=== PATIENT | male | born 1940 | race Caucasian/White ===

== ENCOUNTER 2017-10-14 08:55 | Emergency (ER) | payer MEDICARE, OTHER ==
[2012-07-01 09:42] VITALS: BMI 23.1
--- NOTE | ~2017-10-14 | CN ---
PATIENT NAME:FRANKLIN WHITNEY MEDICAL RECORD: [id number] : 44 LOCATION:.ER ADMIT DATE: ACCOUNT: [id number] CONSULTING PHYSICIAN: ANNA CARPENTER MD REFERRING PHYSICIAN: HIREN COLE MD DATE OF CONSULTATION: 10/14/2017 CARDIOLOGY CONSULT PROBLEM LIST: 1. Shortness of breath - dyspnea on exertion. 2. Coronary artery disease. 3. Previous PTCA and stent. 4. Leg pain compatible with claudication. 5. Hypertension. 6. Noninsulin-dependent diabetes. Mr. Whitney presents with difficulty ambulating and leg pain, compatible with claudication as well as shortness of breath. He does have history of coronary artery disease. No history of peripheral vascular disease. Last cardiac stent was a number of years ago. REVIEW OF SYSTEMS: The patient reports easy bruising but reports no swollen glands. The patient reports no fever, no night sweats, no significant weight gain, no significant weight loss. No significant exercise tolerance. The patient reports no dry eyes, no irritation, no vision change. Patient reports no difficulty hearing and no ear pain. Patient reports no frequent nose bleeds or nose and sinus problems. Patient reports on arm pain on exertion. No shortness of breath while lying down. No history of heart murmur. Patient reports no cough, no wheezing or coughing up blood. Patient reports no abdominal pain, no vomiting. Normal appetite. No diarrhea and not vomiting blood. No nausea and no constipation. Patient reports no incontinence. No difficulty urinating. No hematuria. No increased frequency. Patient reports no muscle aches. No weakness, no arthralgias, no back pain. No swelling of the extremities. Patient reports no abnormal mole, no jaundice, no rashes. Reports no loss of consciousness. No weakness and no numbness. No seizures, dizziness, or headaches. The patient reports no depression, no sleep disturbance, feeling safe in a relationship and no alcohol abuse. Patient reports on fatigue. Reports no runny nose or sinus pressure. No itching, no hives, and no frequent sneezing. PHYSICAL EXAMINATION: GENERAL APPEARANCE: Well-nourished, well-developed, appears stated age. Level of distress, comfortable. PSYCHIATRIC: Mental status, alert, normal affect. Orientation, oriented to time, place and person. EYES: Lids and conjunctiva, noninjected. No discharge, no pallor. ENT: Lips, teeth, gums, normal dentition. Oropharynx, no cyanosis, no pallor. NECK: Carotid arteries, bilateral normal upstroke, no bruits, no thrills. JUGULAR VEINS: No jugular venous pressure or distention. CERVICAL LYMPH NODES: Nontender, nonenlarged. THYROID: Not enlarged. Nontender. No nodules. LUNGS: Respiratory effort, unlabored. CHEST: Normal curvature. No thoracic deformity. No chest wall tenderness. Percussion, resonant. Auscultation, clear. No wheezes, no rales, no rhonchi. CONSULT REPORT [id number] FRANKLIN WHITNEY CARDIOVASCULAR: Precordial exam, nondisplaced. No heaves or pericardial thrills. Rate and rhythm, regular. Heart sounds, normal S1, normal S2. No S3, no gallop, no rub. Systolic murmur, not heard. Diastolic murmur, not heard. EXTREMITIES: No cyanosis, no edema. Peripheral pulses, full and equal in all extremities, except as noted. No bruits appreciated. ABDOMEN: Soft, nondistended. Normal aorta. No bruit. Nontender. No masses. Liver, nontender, no hepatomegaly. Spleen, nontender, no splenomegaly. MUSCULOSKELETAL: No joint tenderness. No joint swelling. No erythema. NEUROLOGICAL: Normal gait, normal strength, normal tone. SKIN: Warm and dry. OVERALL IMPRESSION: Most likely, he does have recurrent significant coronary artery disease, this is the etiology of the shortness of breath; and most likely, has hemodynamically significant peripheral vascular disease. We will proceed with coronary angiography and aortofemoral runoff in near future. Further care depends upon the findings of these studies. TRANSINT:[id number] Voice Confirmation ID: [id number] DOCUMENT ID: [id number] ANNA CARPENTER MD CC: [id number] DICTATION DATE: 10/14/17 1451 [employer]EN PL[employer] OPERATIONS MANAGER: 10/14/17 192 DEP 10/14/17 [facility] [address] [id number]
[2017-10-14 11:40] LABS: BASOPHILS 0.2 % (0-2); EOSINOPHILS 1.7 % (0-7); HEMATOCRIT 40.1 % (42.0-54.0); HEMOGLOBIN 13.7 g/dL (13.5-17.5); IMMATURE GRANULOCYTES 0.2 % (0-5); LYMPHOCYTES 22.2 % (15-50); MCH 33.3 pg (26.0-34.0); MCHC 34.2 g/dL (31.0-37.0); MCV 97.6 fL (80.0-100.0); MEAN PLATELET VOLUME 10.1 fL (7.4-10.4); MONOCYTES 10.5 % (2-11); NEUTROPHILS 65.2 % (40-80); PLATELET COUNT 165 10x3/uL (130-400); RBC 4.11 10x6/uL (4.20-6.10); RDW 15.4 % (11.5-14.5); WBC 4.7 10x3/uL (4.8-10.8)
[2017-10-14 12:02] LABS: ALBUMIN 3.7 g/dL (3.4-5.0); ALKALINE PHOSPHATASE 76 U/L (46-116); ALT (SGPT) 34 U/L (10-68); CALC OSMOLALITY 268 mosm/kg (275-300); CALCIUM 8.8 mg/dL (8.5-10.1); CARBON DIOXIDE 30.2 mmol/L (21.0-32.0); CHLORIDE - SERUM 98 mmol/L (98-107); GLUCOSE 105 mg/dL (74-106); POTASSIUM - SERUM 4.7 mmol/L (3.5-5.1); PROTEIN - SERUM 7.9 g/dL (6.4-8.2); SODIUM 135 mmol/L (136-145); UREA NITROGEN 10 mg/dL (7-18); eGFR NON AFRICAN AMERICAN 77 mL/min (90-120)
[2017-10-14 13:57] LABS: CKMB 4.4 U/L (0.0-3.6); CREATINE KINASE 203 UL (21-232); PRO BNP 2122 pg/mL (0-450); TROPONIN-I 0.016 ng/mL (0.000-0.060)
[2017-10-15] MEDS ORDERED: LEVOXYL25 MCG PO (08:12)
[2017-10-15] MEDS ORDERED: BAYER CHEWABLE81 MG PO (08:13)
[2017-10-15] MEDS ORDERED: DESERYL100 MG PO (08:13)
[2017-10-15] MEDS ORDERED: BYSTOLIC5 MG PO (08:13)
[2017-10-15] MEDS ORDERED: GLUCOPHAGE1000 MG PO (08:13)
[2017-10-15] MEDS ORDERED: ADVAIR 250/501 DISK INH (08:14)
[2017-10-15] MEDS ORDERED: FISH OIL 1,0001 CA1 PO (08:14)
[2017-10-15 08:36] VITALS: BMI 23.1
[2017-10-15] MEDS ORDERED: PLAVIX75 MG PO (10:39)
== END 2017-10-14 15:30 | disposition home or self-care (01) ==
LOC: D.ER 08:55
PROVIDERS: Family Medicine
DX: R06.09 Other forms of dyspnea (principal); M79.604 Pain in right leg; I10 Essential (primary) hypertension

== ENCOUNTER 2017-10-15 07:40 | Outpatient (CLI) | payer MEDICARE, OTHER ==
[~2017-10-15] VITALS: Ht 185.4 cm; Wt 79.5 kg
--- NOTE | ~2017-10-15 | OP ---
PATIENT NAME: FRANKLIN SHORT MEDICAL RECORD: [id number] :44 LOCATION:D.CAT ADMISSION DATE: SURGEON: ANNA CARPENTER MD DATE OF OPERATION: 10/15/2017 PROCEDURE: 1. Aortofemoral runoff. 2. Abdominal aortography. INDICATION: Claudication and peripheral vascular disease. PROCEDURE IN DETAIL: After informed consent was obtained and after detailed explanation of risks, benefits as well as alternative therapies, placed under anesthesia with aortofemoral runoff. FINDINGS: Abdominal aortography was performed. The catheter was pulled down for aortofemoral runoff. Abdominal aortography reveals no significant abdominal aortic disease. No dissection or aneurysm formation. No renal artery stenosis. RIGHT LEG: A. Iliac: The common internal and external iliacs have moderate irregularities, but no flow-limiting stenosis. B. Femoral system: The common superficial and deep femoral have moderate irregularities, but no flow-limiting stenosis. C. Popliteal and infrapopliteal vessels are widely patent with good vigorous runoff to the foot. LEFT LEG: A. Iliac: The common internal and external iliacs have moderate irregularities, but no flow-limiting stenosis. B. Femoral system: The common superficial and deep femoral have moderate irregularities, but no flow-limiting stenosis. C. Popliteal and infrapopliteal vessels are widely patent with good vigorous runoff to the foot. OVERALL IMPRESSION: No significant peripheral vascular disease is present. Leg pain is non-arterial vascular in etiology. TRANSINT:[id number] Voice Confirmation ID: [id number] DOCUMENT ID: [id number] ANNA CARPENTER MD CC: [id number] DICTATION DATE: 10/15/17 1025 SUPPORT SERVICES MANAGER: 10/15/17 1051 [facility] [address] [id number]
--- NOTE | ~2017-10-15 | HEMODYNAMI ---
PATIENT:FRANKLIN SHORT MEDICAL RECORD: [id number] : 44 LOCATION:[place] ADMISSION DATE: 10/15/17 Generatedon:10/15/201710:29 Patient name: FRANKLIN SHORT Patient #: [id number] SSN : [id number] : 1940 Date of study: 10/15/2017 Page: Of Hemodynamic Procedure Report Patient Data Patient Demographics Procedure consent was obtained First Name: FRANKLIN Gender: Male Last Name: DEJA : 1940 [facility] Initial: J Age: 77 year(s) Patient #: [id number] Race: SSN: [id number] Additional ID: [id number] Contact details Address: [address] [place] [address] State: [place] City: [place] Zip code: [address] Past Medical History Allergies Allergen Reaction Date Comments Reported Other allergy 10/15/2017 penicillin Admission Admission Data Admission Date: 10/15/2017 Admission Time: 7:40 Arrival Date: 10/15/2017 Arrival Time: 10:00 Admit Source: Other Insurance Payor: Medicare Height (in.): 73 BSA: 2.08 (m2) Height (cm.): 185.42 BMI: 24.28 (kg/m2) Weight (lbs.): 184 Weight (kg.): 83.46 Lab Results Lab Result Date: 10/15/2017 Lab Result Time: 0:00 Biochemistry Name Units Result Min Max BUN mg/dl 11 --(-*--)-- 7 18 Creatinine mg/dl 1.2 --(---*)-- 0.6 1.3 CBC Name Units Result Min Max Hemoglobin g/dl 14.3 --(*---)-- 13.5 17.5 Procedure Procedure Types Cath Procedure Diagnostic Procedure [facility] w/Coronaries FFR/IVUS Intra-Coronary IVUS Initial PCI Procedure Coronary Stent Coronary Stent Initial Miscellaneous Procedures Moderate Sedation up to 15 minutes Peripheral Cath Diagnostic Procedure Cath Peripheral Zufln-Txhxinl-Tlm-Off Procedure Description Procedure Date Procedure Date: 10/15/2017 Procedure Start Time: 10:07 Procedure End Time: 10:23 Procedure Staff Name Function Gigi Silveira MD Performing Physician Pauline Desai RT Monitor Tami Ford RT Scrub Iveth Guevara RN Nurse Indication Angina Procedure Data Cath Procedure Fluoroscopy Diagnostic fluoroscopy Total fluoroscopy Time: 3.5 time: 3.5 min min Diagnostic fluoroscopy Total fluoroscopy dose: 713 dose: 713 mGy mGy Contrast Material Contrast Material Type Amount (ml) Isovue 300 113 Entry Location Entry Primary Successful Side Size Upsize Upsize Entry Closure Succes sful Closure Location (Fr) 1 (Fr) 2 (Fr) Remarks Device Remarks Femoral Left 5 Fr 6 Fr Exoseal artery Short Estimated blood loss: 5 ml Diagnostic catheters Device Type Used For End Catheter Placement MULTIPACK Pigtail 5 Fr LV Angiography catheter MULTIPACK JL 4.0 5Fr Left Coronary catheter Angiography MULTIPACK 3DRC 5Fr Right Coronary catheter Angiography Procedure Complications No complications Procedure Medications Medication Administration Route Dosage 0.9% NaCl I.V. 100 ml/hr Oxygen NC 2 l/min Lidocaine 2% added to field 20 Heparin Flush Bag added to field 2 bags (1000units/500ml NS) Fentanyl I.V. 50 mcg Versed I.V. 1 mg Fentanyl I.V. 50 mcg Versed I.V. 1 mg Heparin Bolus I.V. 4000 units Integrilin (Bolus I.V. 7.3 ml 2mg/ml) Plavix P.O. 600 mg Hemodynamics Rest BSA: 2.08 (m2) HGB: 14.3 (g/dl) O2 Consumption: Estimated: 241.29 (ml/min) O2 Co nsumption indexed: Estimated:116 (ml/min/m) Heart Rate: 73 (bpm) Pressure Samples Time Site Value (mmHg) Purpose Heart Use Rate(bpm) 10:08 LV 99/3,7 Snapshot 75 Snapshots Pre Cath Intra NCS Post Cath Vital Signs Time Heart Resp SPO2 etCO2 NIBP (mmHg) Rhythm Pain Sedation Rate (ipm) (%) (mmHg) Status Level (bpm) 9:30:37 84 14 95 0 152/92(127) NSR 0 (11) 10(A) , No pain 9:34:53 74 18 96 19.7 148/86(121) NSR 0 (11) 10(A) , No pain 9:39:05 71 19 96 10.6 151/92(127) NSR 0 (11) 10(A) , No pain 9:43:21 72 16 96 9.8 134/87(114) NSR 0 (11) 10(A) , No pain 9:47:37 71 14 97 9.1 147/82(123) NSR 0 (11) 10(A) , No pain 9:51:51 69 16 96 9.8 141/80(116) NSR 0 (11) 10(A) , No pain 9:56:03 71 14 98 22 144/81(127) NSR 0 (11) 10(A) , No pain 10:00:13 71 21 95 22.8 137/93(113) NSR 0 (11) 10(A) , No pain 10:04:23 68 20 97 21.2 137/84(120) NSR 0 (11) 10(A) , No pain 10:08:33 70 21 97 19.7 147/81(121) NSR 0 (11) 9(A) , No pain 10:12:47 69 21 98 18.9 141/84(123) NSR 0 (11) 9(A) , No pain 10:16:59 69 19 97 29.6 134/83(109) NSR 0 (11) 9(A) , No pain 10:21:08 73 21 97 16.7 148/83(120) NSR 0 (11) 10(A) , No pain Medications Time Medication Route Dose Verified Delivered Reason Not es Effectiveness by by 9:48:38 0.9% NaCl I.V. 100ml/hr Gigi Lazaro used for Raoul Guevara RN procedure 9:48:48 Oxygen NC 2 l/min Gigi Lazaro Per physician Raoul Guevara RN 9:48:55 Lidocaine 2% added 20ml Gigi Yu used for to vial Raoul Silveira MD procedure field 9:49:04 Heparin Flush added 2 bags Gigi Yu used for Bag to Raoul Silveira MD procedure (1000units/500ml field NS) 10:04:49 Fentanyl I.V. 50 mcg Gigi Lazaro for sedation Raoul Guevara RN 10:04:58 Versed I.V. 1 mg Gigi Lazaro for sedation Raoul Guevara RN 10:07:54 Fentanyl I.V. 50 mcg Gigi Lazaro for sedation Raoul Guevara RN 10:08:00 Versed I.V. 1 mg Gigi Lazaro for sedation Raoul Guevara RN 10:18:00 Integrilin I.V. 7.3ml Gigi Lazaro for was te (Bolus 2mg/ml) Raoul Guevara RN antiplatelet 2.7ML therapy 10:18:08 Heparin Bolus I.V. 4000 Gigi Lazaro for alexis ified units Raoul Guevara RN anticoagulation by 10:22:04 Plavix P.O. 600 mg Gigi Lazaro for Raoul Guevara RN antiplatelet therapy Procedure Log Time Note 9:13:45 Diagnostic Cath Status : Elective 9:14:35 Indication : Angina 9:14:38 Pauline Desai RT(R) sent for patient. Start room use. 9:14:39 Time tracking: Regular hours 9:14:44 Plan of Care:Hemodynamics will remain stable., Cardiac rhythm will remain stable., Comfort level will be maintained., Respiratory function will remain adequate., Patient/ family verbilizes understanding of procedure., Procedure tolerated without complication., Recovers from procedure without complications.. 9:15:40 Informed consent obtained and on chart 9:16:37 Admit Source: Other 9:16:39 Arrival Date: 10/15/2017 10:00:00 AM 9:16:50 Insurance Payor : Medicare 9:17:00 Patient Height : 73 inches 9:17:04 Patient Weight : 184 lbs 9:22:37 Lab Result : BUN 11 mg/dl 9:22:37 Lab Result : Hemoglobin 14.3 g/dl 9:22:37 Lab Result : Creatinine 1.2 mg/dl 9:23:12 Patient received from Pre/Post Procedure Room to CCL 2 Alert and oriented. Tansferred to table in Supine position. 9:23:13 Warm blankets applied, and carter hugger turned on for patient comfort. 9:23:13 Correct patient and procedure confirmed by team. 9:23:13 ECG and BP/O2 sat monitors applied to patient. 9:29:28 Vital chart was started 9:33:07 Baseline sample Acquired. 9:33:13 Rhythm: sinus rhythm 9:33:15 Full Disclosure recording started 9:33:53 H&P Date Dictated: 10/14/2017 Within 30 days and on chart., H&P Addendum completed by physician on day of procedure. (MUST COMPLETE FOR ALL OUTPATIENTS). 9:33:54 Pre-procedure instructions explained to patient. 9:33:54 Pre-op teaching completed and patient verbalized understanding. 9:33:56 Family in waiting room. 9:33:57 Patient NPO since Midnight. 9:34:14 Patient allergic to Other allergypenicillin 9:34:34 Is the patient allergic to Iodine/contrast media? No. 9:34:35 Was the patient premedicated? No 9:34:36 Is patient on blood thinner?No 9:34:38 Patient diabetic? Yes. 9:34:40 If diabetic: On Metformin? Yes 9:34:41 If on Metformin: Last Dose? 10/14/2017 9:34:44 Previous problem with sedation/anesthesia? No ? 9:34:48 Snore? Yes 9:34:49 Sleep apnea? No 9:34:50 Deviated septum? No 9:34:50 Opens mouth fully? Yes 9:34:51 Sticks out tongue? Yes 9:34:52 Airway obstruction? No ? 9:34:55 Dentures? No ? 9:35:31 Pre procedure: right dorsailis pedis pulse 1+ Palpable, but thready & weak; easily obliterated 9:35:33 Pre procedure: left dorsailis pedis pulse 1+ Palpable, but thready & weak; easily obliterated 9:35:36 Patient pain scale 0/10 ?. 9:35:47 IV patent on arrival in left forearm with 0.9% NaCl at KVO. 9:35:49 Lab results completed and on chart. 9:35:54 Left groin area was prepped with chlora-prep and draped in sterile fashion 9:35:55 Alarms reviewed by R. N. 9:35:55 Sharps counted by scrub and verified by R.N. 9:48:38 0.9% NaCl 100ml/hr I.V. was administered by Iveth Guevara RN; used for procedure; 9:48:48 Oxygen 2 l/min NC was administered by Iveth Guevara RN; Per physician; 9:48:55 Lidocaine 2% 20ml vial added to field was administered by Gigi Silveira MD; used for procedure; 9:49:04 Heparin Flush Bag (1000units/500ml NS) 2 bags added to field was administered by Gigi Silveira MD; used for procedure; 10:00:05 Zero performed for pressure channel P1 10:00:16 Zero performed for pressure channel P1 10:03:25 Physician arrived 10:: --------ALL STOP TIME OUT------ 10:: Final Timeout: patient, procedure, and site verified with staff and physician. All members of the team are in agreement. 10:03:33 Left groin site verified by team. 10:03:37 Physical assessment completed. ASA score P 2 - A patient with mild systemic disease as per Gigi Silveira MD. 10:03:53 Sedation plan: IV Moderate Sedation Medication:Versed, Fentanyl 10:04:20 Use device set Femoral Dx 10:04:21 ACIST Syringe (23642) opened to sterile field. 10:04:22 Bag Decanter (2002S) opened to sterile field. 10:04:22 Medline Cath Pack ([id number]) opened to sterile field. 10:04:22 SHEATH 5FR [place] (VRS645) opened to sterile field. 10:04:23 DIAGNOSTIC WIRE .035 260cm J wire (178132) opened to sterile field. 10:04:24 ACIST Manifold (65568) opened to sterile field. 10:04:25 ACIST Hand Control (33771) opened to sterile field. 10:04:26 DIAGNOSTIC Multipack 5Fr catheter set (UW0094) opened to sterile field. 10:04:26 Tegaderm 4 x 4 (1626W) opened to sterile field. 10:04:49 Fentanyl 50 mcg I.V. was administered by Iveth Guevara RN; for sedation; 10:04:58 Versed 1 mg I.V. was administered by Iveth Guevara RN; for sedation; 10:07:34 Procedure started. 10:07:40 Local anesthetic to left femerol artery with Lidocaine 2% by Gigi Silveira MD.INITIAL ACCESS ONLY 10:07:47 A 5 Fr sheath was inserted into the Left Femoral artery 10:07:54 Fentanyl 50 mcg I.V. was administered by Iveth Guevara RN; for sedation; 10:08:00 Versed 1 mg I.V. was administered by Iveth Guevara RN; for sedation; 10:08:17 A MULTIPACK Pigtail 5 Fr catheter was advanced over the wire and used for LV Angiography. 10:08:39 LV hemodynamics recorded. 10:08:42 LV gram done using [place] 10:08:44 Injector settings: Ml/sec: 5, Volume: 15, 10:08:50 EF : 60 % 10:09:16 Abdominal angiogram w/ runoff was performed. 10:10:18 Zero performed for pressure channel P1 10:10:24 Zero performed for pressure channel P1 10:10:56 Catheter removed. 10:11:02 A MULTIPACK JL 4.0 5Fr catheter was advanced over the wire and used for Left Coronary Angiography. 10:11:08 LCA angiography performed. 10:11:11 Injector settings: Ml/sec: 3, Volume: 6, 10:11:43 Catheter removed. 10:11:47 A MULTIPACK 3DRC 5Fr catheter was advanced over the wire and used for Right Coronary Angiography. 10:12:24 INFLATOR Merit BasixCompak (FX2435) opened to sterile field. 10:12:25 SHEATH 6FR [place] (NOH938) opened to sterile field. 10:12:30 [place] IVUS Catheter (34341Z) opened to sterile field. 10:12:41 RCA angiography performed. 10:12:47 Injector settings: Ml/sec: 3, Volume: 6, 10:12:48 Catheter removed. 10:12:50 Proceeding to intervention. 10:13:04 Sheath upsized to a 6 Fr Short. 10:14:08 GUIDE 6FR XB 3.5 catheter ([id number]) opened to sterile field. 10:14:16 6 Fr xb 3.5 guide catheter was inserted over the wire 10:14:57 CHOICE PT Extra Support 182cm wire ([id number]) opened to sterile field. 10:15:05 choice pt wire advanced. 10:15:07 Wire advanced across lesion. 10:15:12 IVUS catheter advanced over wire. 10:18:00 Integrilin (Bolus 2mg/ml) 7.3ml I.V. was administered by Iveth Guevara RN; for antiplatelet therapy; waste 2.7ML 10:18:08 Heparin Bolus 4000 units I.V. was administered by Iveth Guevara RN; for anticoagulation; verified by 10:18:13 IVUS pass to LAD lesion performed. 10:18:14 IVUS catheter removed over wire. 10:18:55 CHOICE PT Extra Support J 300cm guide wire ([id number]) opened to sterile field. 10:19:15 choice pt wire exchanged for long wire 10:19:52 Inflation Number: 1 A INTEGRITY OTW 3.5 X 18 stent ([id number]) was prepped and advanced across the Prox LAD. The stent was deployed at 17 LORE for 0:10 (min:sec). 10:20:47 Stent catheter was removed intact over wire. 10:20:48 Wire removed. 10:20:48 Guide catheter removed. 10:20:57 EXOSEAL 6Fr (EX600) opened to sterile field. 10:21:07 Sheath removed intact; hemostasis achieved with Exoseal to the Left Femoral artery. 10:21:08 Procedure ended.(Physican Out) 10:21:17 Fluoroscopy time 03.50 minutes. 10:21:21 Flurop Dose total: 713 10:21:21 Fluoroscopy dose: 713 mGy 10:21:31 Contrast amount:Isovue 300 113ml. 10:21:57 Sharps counted by scrub and verified by R.N. 10:21:58 Insertion/operative site no bleeding no hematoma. 10:22:04 Plavix 600 mg P.O. was administered by Iveth Guevara RN; for antiplatelet therapy; 10:22:04 Post-op/insertion site Right Femoral artery dressed using a 4 x 4 and Tegaderm. 10:22:07 Post right femoral artery:stable 10:22:08 Post Procedure Pulses reassessed and unchanged 10:22:11 Post procedure rhythm: unchanged. 10:22:14 Estimated blood loss: 5 ml 10:22:24 Post procedure instruction explained to patient.Patient verbalizes understanding. 10:22:25 Patient needs reinforcement of post procedure teaching. 10:22:56 Procedure type changed to Cath procedure, Diagnostic procedure, LHC, LHC w/Coronaries, FFR/IVUS, Intra-Coronary IVUS Initial, PCI procedure, Coronary Stent, Coronary Stent Initial, Miscellaneous Procedures, Moderate Sedation up to 15 minutes, Peripheral Cath Diagnostic Procedure, Cath Peripheral, Hpxcm-Gzicvyz-Ghd-Off 10:23:08 Procedure and supply charges have been captured, reviewed, submitted and are correct. 10:23:12 Procedure Complication : No complications 10:23:15 Vital chart was stopped 10:23:15 See physician's report for complete and final results. 10:23:17 Report given to Pre/Post Procedure Room. 10:23:19 Patient transfered to Pre/Post Procedure Room with Stretcher. 10:23:21 Procedure ended. 10:23:21 Full Disclosure recording stopped 10:23:27 ACC-PCI Only Patient was given prescriptions, or instructed by Gigi Silveira MD to start/continue the following medications upon discharge: Plavix 10:23:29 End room use (Document Last) Intervention Summary Intervention Notes Time ActionType Lesion and Equipment Action# Pressure Duration Attributes Used 10:19:52 Place stent Prox LAD INTEGRITY 1 17 00:10 OTW 3.5 X 18 stent ([id number]) Device Usage Item Name Manufacture Quantity Catalog Number Hospital Part Current Minim al Lot# / Charge Number Stock Stock Serial# Code ACIST Acist 1 97328 733605 396961 597288 20 Syringe Medical (80183) Systems Inc Bag Microtek 1 2001S 210028 59694 061437 5 Decanter Medical Inc. () Medline Cardinal 1 [id number] 993672 60568 299730 5 Cath Pack investUP ([id number]) SHEATH 5FR Terumo 1 MVE713 607423 348282 391107 40 [place] (SUN591) DIAGNOSTIC St Yair 1 452482 591052 339478 993263 30 WIRE .035 260cm J wire (913776) ACIST Acist 1 88296 873659 214442 360039 5 Manifold Medical (18181) Systems Inc ACIST Hand Acist 1 35854 013834 897059 736900 5 Control Medical (25622) Systems Inc DIAGNOSTIC Cardinal 1 PH8082 967384 06233 680219 30 Multipack Health 5Fr catheter set (AG9574) Tegaderm 4 3M 1 1626W 140826 660149 305100 5 x 4 (1626W) MULTIPACK Cardinal 1 418532 5 Pigtail 5 Health Fr catheter MULTIPACK Cardinal 1 986503 5 JL 4.0 5Fr Health catheter MULTIPACK Cardinal 1 868969 5 3DRC 5Fr Health catheter INFLATOR Merit 1 DW8878 879233 059508 049008 15 [place] Medical BasixCompak (FO8734) SHEATH 6FR Terumo 1 RXU198 489743 549972 874011 40 [place] (TKG631) [place] 1 97518O 602793 868271 887912 8 [place] IVUS Catheter (13702G) GUIDE 6FR Cardinal 1 [id number] 735266 391510 365517 2 XB 3.5 Health catheter (12001149) CHOICE PT Universal 1 [id number] 404374 968822 351326 5 Extra Scientific Support 182cm wire (4501734U0) CHOICE PT Universal 1 [id number] 509173 511040 368791 5 Extra Scientific Support J 300cm guide wire ([id number]) INTEGRITY Medtronic 1 [id number] 903964 220293 4 [id number] OTW 3.5 X 18 stent ([id number]) EXOSEAL 6Fr Cardinal 1 EX600 466967 313701 864627 10 (EX600) Health Signature Audit [place] Stage Time Signature Unsigned Intra-Procedure 10/15/2017 Pauline Desai 10:29:01 AM RT(R) Signatures Monitor : Pauline Desai RT Signature : Date : Time : [id number] [place] [address]
--- NOTE | ~2017-10-15 | OP ---
PATIENT NAME: FRANKLIN SHORT MEDICAL RECORD: [id number] :44 LOCATION:[facility] ADMISSION DATE: SURGEON: ANNA CARPENTER MD DATE OF OPERATION: 10/15/2017 PROCEDURES: 1. PTCA stent LAD. 2. Intravascular ultrasound. 3. Left heart catheterization. 4. Selective coronary angiography. 5. Left ventriculogram. INDICATION: Angina and coronary artery disease. PROCEDURE IN DETAIL: After informed consent was obtained and after a detailed explanation of risks, benefits as well as alternative therapies, the patient elected to proceed with angiogram and angioplasty. The left femoral area was prepped and draped in normal sterile fashion. The left femoral artery was cannulated via modified Seldinger technique with placement of 6-Tamazight sheath. All catheters exchanged through this sheath. FINDINGS: Left ventriculogram was performed in standard 30-degree BEACH view, reveals good cardiac wall motion throughout all segments. Overall ejection fraction estimated 60%. SELECTIVE CORONARY ANGIOGRAPHY: 1. Left main showed no significant angiographic disease. 2. Left anterior descending has previously placed stents, these are widely patent with no significant restenosis; however, proximal to the previously placed stent, confirmed by intravascular ultrasound a 75% stenosis. 3. The left circumflex shows moderate irregularities, but no flow-limiting stenosis. 4. Right coronary has moderate irregularities, but no flow-limiting stenosis. PTCA STENT OF THE LAD: The stent used was a 3.5 x 18 mm Integrity taken to 17 atmospheres. Result was 0% residual stenosis. OVERALL IMPRESSION: Successful percutaneous transluminal coronary angioplasty stent of the left anterior descending going from 75% initial stenosis to 0% residual stenosis. TRANSINT:[id number] Voice Confirmation ID: [id number] DOCUMENT ID: [id number] ANNA CARPENTER MD CC: [id number] DICTATION DATE: 10/15/17 1025 KRAFT DIGESTER OPERATOR: 10/15/17 1050 [facility] [address] [place] [address]
[2017-10-15] MEDS ORDERED: LEVOXYL25 MCG PO (08:12)
[2017-10-15] MEDS ORDERED: DESERYL100 MG PO (08:13)
[2017-10-15] MEDS ORDERED: GLUCOPHAGE1000 MG PO (08:13)
[2017-10-15] MEDS ORDERED: BAYER CHEWABLE81 MG PO (08:13)
[2017-10-15] MEDS ORDERED: BYSTOLIC5 MG PO (08:13)
[2017-10-15] MEDS ORDERED: FISH OIL 1,0001 CA1 PO (08:14)
[2017-10-15] MEDS ORDERED: ADVAIR 250/501 DISK INH (08:14)
[2017-10-15 08:36] VITALS: BP 155/81; Ht 185.4 cm; Wt 79.5 kg
[2017-10-15 08:43] LABS: BASOPHILS 0.2 % (0-2); EOSINOPHILS 3.3 % (0-7); HEMATOCRIT 43.2 % (42.0-54.0); HEMOGLOBIN 14.3 g/dL (13.5-17.5); IMMATURE GRANULOCYTES 0.2 % (0-5); LYMPHOCYTES 25.3 % (15-50); MCHC 33.1 g/dL (31.0-37.0); MEAN PLATELET VOLUME 10.8 fL (7.4-10.4); PLATELET COUNT 181 10x3/uL (130-400); RBC 4.33 10x6/uL (4.20-6.10); RDW 15.8 % (11.5-14.5); WBC 4.3 10x3/uL (4.8-10.8)
[2017-10-15 08:47] LABS: MCV 99.8 fL (80.0-100.0)
[2017-10-15 09:00] LABS: CARBON DIOXIDE 29.1 mmol/L (21.0-32.0); CREATININE - SERUM 1.2 mg/dL (0.6-1.3)
[2017-10-15 09:01] LABS: ANION GAP 11.5 mmol/L (8-16); POTASSIUM - SERUM 4.6 mmol/L (3.5-5.1)
[2017-10-15] MEDS ORDERED: PLAVIX75 MG PO (10:39)
== END 2017-10-15 14:30 | disposition home or self-care (01) ==
LOC: D.CATH 07:40
PROVIDERS: Internal Medicine Interventional Cardiology
DX: I25.119 Atherosclerotic heart disease of native coronary artery with unspecified angina pectoris (principal); Z95.5 Presence of coronary angioplasty implant and graft; M79.606 Pain in leg, unspecified; Z01.812 Encounter for preprocedural laboratory examination

== ENCOUNTER → 2018-12-29 09:08 | Outpatient (CLI) | payer MEDICARE, OTHER ==
[2017-10-15 08:36] VITALS: BMI 23.1
[~2018-12-29 09:08] MED LIST: ADVAIR 250/501 DISK INH; BAYER CHEWABLE81 MG PO; BYSTOLIC5 MG PO; DESERYL100 MG PO; FISH OIL 1,0001 CA1 PO; GLUCOPHAGE1000 MG PO; LEVOXYL25 MCG PO; PLAVIX75 MG PO
--- NOTE | 2018-12-31 10:39 | ST ---
PATIENT:FRANKLIN SHORT MEDICAL RECORD: [id number] SEX: M LOCATION:[facility] ORDER #: ADMISSION DATE: 12/29/18 AGE OF PATIENT: 78 REFERRING PHYSICIAN: INTERPRETING PHYSICIAN: ANNA CARPENTER MD DATE OF SERVICE: 12/29/2018 PROCEDURE: Nuclear stress test. INDICATION: Angina, shortness of breath, CAD. The patient was exercised on standard Lexiscan protocol with 29 mCi of sestamibi injected at peak stress, 8 mCi used previously for rest images. FINDINGS: Gated SPECT reveals preserved ejection fraction at 64% with good wall motion and thickening and brightening throughout all segments. SPECT imaging Cardiolite was used as myocardial fusion agent. There is homogeneous uptake throughout all segments at rest and stress with no evidence of inducible ischemia or previous infarction. OVERALL IMPRESSION: 1. This is a normal nuclear stress test with no evidence of inducible ischemia or previous infarction. 2. Gated SPECT reveals a preserved ejection fraction at 64%. In this patient with ongoing symptomatology, the current scan does not suggest the presence of hemodynamically significant coronary artery disease. Evaluate noncardiac etiology of chest pain. TRANSINT:[id number] Voice Confirmation ID: [id number] DOCUMENT ID: [id number] ANNA CARPENTER MD at 1039 CC: [id number] DICTATION DATE: 12/29/18 1555 SUPERVISOR PHOTOENGRAVING: 12/30/18 0559 [facility] CLI 12/29/18 [id number] [place] [address]
== END | disposition home or self-care (01) ==
LOC: D.HCCARDIO 09:08
PROVIDERS: ATTEND Internal Medicine Interventional Cardiology
DX: I25.10 Atherosclerotic heart disease of native coronary artery without angina pectoris (principal)